=== PATIENT | female | born 2000 | race Two or more races ===

== ENCOUNTER 2025-03-21 08:09 | Emergency (ER) | payer MEDICAID, OTHER ==
[~2025-03-21] VITALS: Ht 149.9 cm; Wt 57.7 kg
[2025-03-21] MEDS: SODIUM CHLORIDE 0.9% 1,000 ML IV ONE (08:59)
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
[2025-03-21 09:18] VITALS: BP 103/75; PULSE 81; RESP 16; TEMP 97.5; O2SAT 96
[2025-03-21 09:19] LABS: Potassium 3.7 mmol/L (3.5-5.1); Sodium 143 mmol/L (136-145)
[2025-03-21 09:20] LABS: Anion Gap 11 (5-15); Calcium 8.8 mg/dL (8.7-10.4); Carbon Dioxide 25 mmol/L (20-31)
[2025-03-21 09:21] LABS: Chloride 107 mmol/L (98-107)
[2025-03-21 09:25] LABS: Glucose 75 mg/dL (74-106)
[2025-03-21 09:28] LABS: BUN/Creatinine Ratio 6.2 (10.0-20.0); Blood Urea Nitrogen < 5 mg/dL (9-23)
[2025-03-21] MEDS: THIAMINE 100mg/ml INJ (200mg/2ml VIAL) IV ONE (10:04)
[2025-03-21 10:43] LABS: Urine Protein, UAD Negative (Negative)
[2025-03-21] MEDS ORDERED: NITR-87 PO (10:50)
== END 2025-03-21 11:00 | disposition home or self-care (01) ==
LOC: ER 08:13
DX: N39.0 Urinary tract infection, site not specified (principal); F10.129 Alcohol abuse with intoxication, unspecified; Z88.0 Allergy status to penicillin; Z79.899 Other long term (current) drug therapy; Y90.9 Presence of alcohol in blood, level not specified
CPT/HCPCS: 36415; 80048; 80320; 81001; 96361; 96374; 99283; J3411; J7030

== ENCOUNTER 2025-06-16 00:58 | Emergency (ER) | payer MEDICAID ==
[~2025-06-16] VITALS: Ht 149.9 cm; Wt 56.8 kg
[~2025-06-16 00:58] MED LIST: NITR-87 PO
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
[2025-06-16 04:58] VITALS: BP 114/56; PULSE 81; RESP 18; TEMP 98.1; O2SAT 96
== END 2025-06-16 05:07 | disposition home or self-care (01) ==
LOC: ER 00:58 → EDBD 00:58 → ER 05:07
DX: F10.129 Alcohol abuse with intoxication, unspecified (principal); F41.9 Anxiety disorder, unspecified; Z88.0 Allergy status to penicillin; Z79.899 Other long term (current) drug therapy